=== PATIENT | female | born 1970 | race American Indian/Alaskan Native ===

== ENCOUNTER 2017-02-21 11:18 | Emergency (ER) | payer SELFPAY ==
[2017-02-21 12:50] VITALS: BP 136/84
[2017-02-21] MEDS ORDERED: FLEXERIL PO ONE (15:00)
[2017-02-21] MEDS ORDERED: TORADOL IM ONE (15:00)
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
== END 2017-02-21 16:20 | disposition home or self-care (01) ==
LOC: ED 11:18
DX: M54.5 Low back pain (principal); G89.29 Other chronic pain; M62.830 Muscle spasm of back; V49.49XA Driver injured in collision with other motor vehicles in traffic accident, initial encounter; X58.XXXA Exposure to other specified factors, initial encounter; Y93.9 Activity, unspecified; Y92.9 Unspecified place or not applicable; Y99.9 Unspecified external cause status
CPT/HCPCS: 96372; 99282; J1885